=== PATIENT | female | born 1940 | race Caucasian/White ===

== ENCOUNTER 2017-12-07 06:52 | Outpatient (CLI) | payer OTHER | END 2017-12-07 07:10 | disposition home or self-care (01) | LOC: LAB 06:52 | DX: K62.3 Rectal prolapse (principal); R15.9 Full incontinence of feces; K92.1 Melena ==

== ENCOUNTER 2017-12-07 06:56 | Outpatient (CLI) | payer OTHER | END 2017-12-07 07:09 | disposition home or self-care (01) | LOC: RAD 06:56 | DX: K62.3 Rectal prolapse (principal); R15.9 Full incontinence of feces; K92.1 Melena ==

== ENCOUNTER 2017-12-09 13:15 | Inpatient (IN) | payer OTHER ==
[~2017-12-09] VITALS: Ht 162.6 cm; Wt 90.7 kg
[2017-12-09] MEDS ORDERED: ISOSORBIDE DINI30 MG PO (14:53)
[2017-12-09] MEDS ORDERED: FENOGLIDE40 MG PO (14:53)
[2017-12-09] MEDS ORDERED: LEVO-T50 MCG PO (14:53)
[2017-12-09] MEDS ORDERED: ALTACE2.5 MG PO (14:54)
[2017-12-09] MEDS ORDERED: ARICEPT10 MG PO (14:55)
[2017-12-09] MEDS ORDERED: SIMVASTATIN40 MG PO (14:56)
[2017-12-09] MEDS ORDERED: HUMULIN 70100 UNIT/2 IJ (14:56)
== END 2017-12-16 19:44 | disposition home or self-care (01) | DRG 331 ==
LOC: EDUNIT# 13:15 → O/R 12-14 07:11 → SURG 12-14 07:11 → SURH 12-14 13:15 → SURG 12-14 14:34 → SURH 12-14 18:30 → SURG 12-16 19:44
PROVIDERS: Colon & Rectal Surgery
PROC: 0JQC0ZZ Repair Pelvic Region Subcutaneous Tissue and Fascia, Open Approach (ICD-10-PCS; 2017-12-14)
PROC: 0DQR0ZZ Repair Anal Sphincter, Open Approach (ICD-10-PCS; 2017-12-14)
PROC: 0DJD8ZZ Inspection of Lower Intestinal Tract, Via Natural or Artificial Opening Endoscopic (ICD-10-PCS; 2017-12-14)
PROC: 0DBP7ZZ Excision of Rectum, Via Natural or Artificial Opening (ICD-10-PCS; principal; 2017-12-14 18:30)
PROC: 3E0F7GC Introduction of Other Therapeutic Substance into Respiratory Tract, Via Natural or Artificial Opening (ICD-10-PCS; 2017-12-15)
DX: K62.3 Rectal prolapse (principal); R15.9 Full incontinence of feces; E11.21 Type 2 diabetes mellitus with diabetic nephropathy; E11.42 Type 2 diabetes mellitus with diabetic polyneuropathy; E11.22 Type 2 diabetes mellitus with diabetic chronic kidney disease; N18.3 Chronic kidney disease, stage 3 (moderate); E78.2 Mixed hyperlipidemia; E03.8 Other specified hypothyroidism; J45.20 Mild intermittent asthma, uncomplicated; E66.8 Other obesity